=== PATIENT | female | born 1980 | race Caucasian/White ===

== ENCOUNTER 2017-10-13 17:35 | Day surgery (SDC) | payer BC ==
[2017-10-13] VITALS (7 sets, daily range): BP systolic 107–126; BP diastolic 45–80; PULSE 85–93; TEMP 97.1
[~2017-10-13 17:35] MED LIST: ACETAMINOPHEN W1 TA6 PO; ESCITALOPRAM; FERROUS SULFAT325 MG PO; LEXAPRO 10MG10 MG PO; MOTRIN 200200 MG/TAB PO; MOTRIN 800800 MG/TAB PO; PERCOCET 325 MG1 TA2 PO; PRENATAL VITAMI1 TA5 PO
[2017-10-13] MEDS ORDERED: MAGNESIUM200 MG PO (17:55)
[2017-10-13] MEDS ORDERED: FASTIN30 MG PO (17:56)
[2017-10-14] VITALS: BP 107/60; PULSE 89; TEMP 97.9
[2017-10-14 04:00] VITALS: BP 99/60; PULSE 93; TEMP 98.1
[2017-10-14 07:57] VITALS: BP 112/73; PULSE 94; TEMP 98
[2017-10-14 11:19] VITALS: BP 104/63; PULSE 78; TEMP 98.4
== END 2017-10-14 12:30 | disposition home or self-care (01) ==
LOC: SDCO 17:35 → SURG 17:36 → SDCO 10-14 12:30
DX: K35.80 Unspecified acute appendicitis (principal); N20.0 Calculus of kidney; Z87.891 Personal history of nicotine dependence
CPT/HCPCS: OP; J1100; J1170; J1885; J2405; J2550; J2704; J2710; J3010; Q9967

== ENCOUNTER → 2021-11-13 | Outpatient (CLI) | payer BC ==
[~2021-11-13] MED LIST changes: +FASTIN30 MG PO; +MAGNESIUM200 MG PO
== END ==
LOC: MC.RAD 13:52
DX: Z12.31 Encounter for screening mammogram for malignant neoplasm of breast (principal)

== ENCOUNTER → 2022-02-10 | Outpatient (CLI) | payer BC | LOC: COL.VAS 12:52 | DX: Q22.1 Congenital pulmonary valve stenosis (principal) ==

== ENCOUNTER → 2023-06-28 | Outpatient (CLI) | payer BC | LOC: MC.RAD 09:45 | DX: Z12.31 Encounter for screening mammogram for malignant neoplasm of breast (principal) ==